=== PATIENT | female | born 1995 | race Caucasian/White ===

== ENCOUNTER 2019-04-19 12:36 | Observation (INO) ==
[2019-04-19 13:47] LABS: Bilirubin,Urine Negative (Negative); Blood,Urine Trace (Negative); Clarity,Urine Turbid (Clear); Color,Urine Yellow (Yellow); Glucose,Urine (UA) Normal (Normal); Ketones,Urine Negative (Negative); Leukocyte Esterase,Urine Large (Negative); Nitrite,Urine Positive (Negative); PH,Urine 7.5 pH Units (5.0-8.0); Protein,Urine 30 mg/dL (Neg-Trace); Specific Gravity,Urine 1.015 (1.010-1.025); Urobilinogen,Urine Normal (Normal)
[2019-04-19 13:48] LABS: Bacteria,Urine Many per hpf (None-Few); Hyaline Casts,Urine Few per lpf (None-Few); Squamous Epithelial Cell,Urine Many per lpf (None-Few); WBC,Urine TNTC per hpf (0-3)
[2019-04-19 13:57] LABS: RBC,Urine 0-3 per hpf (0-3)
[2019-04-19 14:01] LABS: Basophils % 0.1 %; Eosinophils # 0.1 K/mcL (0.0-0.6); Eosinophils % 0.4 %; Hematocrit 33.3 % (35.3-44.9); Hemoglobin 11.4 g/dL (11.5-15.4); Immature Granulocytes % 0.4 % (0-4); Lymphocytes # 2.1 K/mcL (0.6-4.6); Lymphocytes % 15.8 %; Mean Corpuscular HGB Conc 34.2 g/dL (31.6-35.5); Mean Corpuscular Hemoglobin 28.1 pg (28.0-33.3); Mean Corpuscular Volume 82.2 fL (83.0-100.0); Mean Platelet Volume 11.9 fL (9.4-12.4); Monocytes # 0.7 K/mcL (0.0-1.3); Monocytes % 5.3 %; Neutrophils # 10.5 K/mcL (1.6-8.9); Platelet Count 242 K/mcL (140-400); Red Blood Count 4.05 M/mcL (3.82-4.97); Red Cell Distribution Width 13.4 % (11.5-14.5); White Blood Count 13.4 K/mcL (4.3-11.1)
[2019-04-19] MEDS ORDERED: Ringers Solution, Lactated 1,000 ML IVC ONE (14:01)
[2019-04-19 14:21] LABS: Amphetamine Screen,Urine Negative ng/mL (Cutoff=1000); Barbiturate Screen,Urine Negative ng/mL (Cutoff=200); Benzodiazepines Screen,Urine Negative ng/mL (Cutoff=200); Cannabinoid Screen,Urine Negative ng/mL (Cutoff = 50); Cocaine Screen,Urine Negative ng/mL (Cutoff= 300); Opiate Screen,Urine Negative ng/mL (Cutoff=300); Phencyclidine Screen,Urine Negative ng/mL (Cutoff=25)
[2019-04-19 14:23] LABS: Amylase 11 Units/L (29-103)
[2019-04-19] MEDS ORDERED: cefTRIAXone 1,000 MG in Water for inj. (sterile) 10 ML IVP ONE (14:52)
[2019-04-19 16:18] LABS: Alanine Aminotransferase 9 Units/L (7-52); Aspartate Amino Transferase 13 Units/L (13-39); BUN/Creatinine Ratio 10 (6-26); Blood Urea Nitrogen 4 mg/dL (6-20); Lactate Dehydrogenase 128 Units/L (140-271); Lipase 3 Units/L (11-82); Uric Acid 3.9 mg/dL (2.3-7.6); eGFR For African Americans > 60 (> 60); eGFR For Non-African Americans > 60 (> 60)
[2019-04-19 16:20] LABS: Protein/Creatinine Ratio,Urine 0.56 mg/mg (0.00-0.20)
== END 2019-04-19 18:00 | disposition home or self-care (01) ==
LOC: 1NENULAB
PROVIDERS: ADMIT Registered Nurse; ATTEND Registered Nurse

== ENCOUNTER 2019-04-28 07:00 | Inpatient (IN) ==
[2019-04-28] MEDS ORDERED: Famotidine 20 MG/2 ML VIAL IVP ONE (07:17)
[2019-04-28] MEDS ORDERED: CeFAZolin Premix DUPLEX 2,000 MG/50 ML BAG IVPB ONE (07:17)
[2019-04-28] MEDS ORDERED: Metoclopramide 10 MG/2 ML VIAL IVP ONE (07:17)
[2019-04-28] MEDS ORDERED: Oxytocin 20 units/ LR 1000 mL 20 UNIT/1,000 ML BAG IVC ONE (07:17)
[2019-04-28] MEDS ORDERED: Ringers Solution, Lactated 1,000 ML IVC ONE (07:17)
[2019-04-28] MEDS ORDERED: Oxytocin 20 units/ LR 1000 mL 20 UNIT/1,000 ML BAG IVC SCH ×2 (07:30→13:32)
[2019-04-28] MEDS ORDERED: Ringers Solution, Lactated 1,000 ML IVC SCH (07:30)
[2019-04-28] MEDS ORDERED: *HR* Morphine Sulfate/PF 10 MG/10 ML AMPUL ONE (07:41)
[2019-04-28] MEDS ORDERED: Ringers Solution, Lactated 1,000 ML ONE (07:41)
[2019-04-28] MEDS ORDERED: *HR* FentaNYL (PF) 100 MCG/2 ML VIAL ONE (07:41)
[2019-04-28] MEDS ORDERED: *HR* Oxytocin 10 UNIT/ML VIAL IM ONE ×2 (07:41→09:49)
[2019-04-28] MEDS ORDERED: *HR* Phenylephrine 10 MG/ML VIAL ONE (07:41)
[2019-04-28 08:04] LABS: Basophils % 0.2 %; Eosinophils # 0.1 K/mcL (0.0-0.6); Eosinophils % 0.9 %; Hemoglobin 11.3 g/dL (11.5-15.4); Immature Granulocytes % 0.3 % (0-4); Lymphocytes # 2.7 K/mcL (0.6-4.6); Lymphocytes % 26.7 %; Mean Corpuscular HGB Conc 32.3 g/dL (31.6-35.5); Mean Corpuscular Hemoglobin 27.4 pg (28.0-33.3); Mean Corpuscular Volume 84.7 fL (83.0-100.0); Mean Platelet Volume 11.9 fL (9.4-12.4); Monocytes # 0.4 K/mcL (0.0-1.3); Neutrophils # 6.9 K/mcL (1.6-8.9); Platelet Count 242 K/mcL (140-400); Red Blood Count 4.13 M/mcL (3.82-4.97); Red Cell Distribution Width 13.4 % (11.5-14.5); Segmented Neutrophils % 67.9 %; White Blood Count 10.2 K/mcL (4.3-11.1)
[2019-04-28 08:24] LABS: Alanine Aminotransferase 49 Units/L (7-52); Aspartate Amino Transferase 41 Units/L (13-39); BUN/Creatinine Ratio 18 (6-26); Blood Urea Nitrogen 7 mg/dL (6-20); Lactate Dehydrogenase 121 Units/L (140-271); eGFR For African Americans > 60 (> 60); eGFR For Non-African Americans > 60 (> 60)
[2019-04-28 08:37] LABS: Uric Acid 4.6 mg/dL (2.3-7.6)
[2019-04-28 08:38] LABS: Creatinine,Urine 109 mg/dL
[2019-04-28 09:46] LABS: Amphetamine Screen,Urine Negative ng/mL (Cutoff=1000); Barbiturate Screen,Urine Negative ng/mL (Cutoff=200); Benzodiazepines Screen,Urine Negative ng/mL (Cutoff=200); Cannabinoid Screen,Urine Negative ng/mL (Cutoff = 50); Cocaine Screen,Urine Negative ng/mL (Cutoff= 300); Opiate Screen,Urine Negative ng/mL (Cutoff=300); Phencyclidine Screen,Urine Negative ng/mL (Cutoff=25)
[2019-04-28] MEDS ORDERED: Lidocaine -MPF 2% 5 ML VIAL ONE (09:49)
[2019-04-28] MEDS ORDERED: Acetaminophen IV 1,000 MG/100 ML INFUS..BTL IVPB ONE (10:13)
[2019-04-28] MEDS ORDERED: *HR* OxyCODONE Immed Rel 5 MG TABLET PO PRN (10:13)
[2019-04-28] MEDS ORDERED: *HR* HYDROmorphone (PF) 1 MG/ML SYRINGE IVP PRN (10:13)
[2019-04-28] MEDS ORDERED: Ondansetron 4 MG/2 ML VIAL IVP ONE (10:13)
[2019-04-28] MEDS ORDERED: Ondansetron 4 MG/2 ML VIAL IVP PRN (13:32)
[2019-04-28] MEDS ORDERED: Sennosides 8.6 MG TABLET PO PRN (13:32)
[2019-04-28] MEDS ORDERED: Metoclopramide 10 MG/2 ML VIAL IVP PRN (13:32)
[2019-04-28] MEDS: *HR* Buprenorphine HCl 8 MG TAB.SUBL SL SCH ×2 (14:34→21:15)
[2019-04-28] MEDS: metroNIDAZOLE 500 MG TABLET PO SCH ×2 (14:35→21:15)
[2019-04-28] MEDS ORDERED: *HR* Buprenorphine HCl 8 MG TAB.SUBL SL SCH (21:00)
[2019-04-29] MEDS: Simethicone 80 MG TAB.CHEW PO PRN ×2 (03:53→13:28)
[2019-04-29] MEDS: Ibuprofen 600 MG TABLET PO PRN ×3 (03:53→21:02)
[2019-04-29 08:07] LABS: Basophils % 0.2 %; Eosinophils # 0.1 K/mcL (0.0-0.6); Eosinophils % 0.5 %; Hematocrit 32.8 % (35.3-44.9); Hemoglobin 10.8 g/dL (11.5-15.4); Immature Granulocytes % 0.3 % (0-4); Lymphocytes # 2.7 K/mcL (0.6-4.6); Lymphocytes % 21.2 %; Mean Corpuscular HGB Conc 32.9 g/dL (31.6-35.5); Mean Corpuscular Hemoglobin 27.7 pg (28.0-33.3); Mean Corpuscular Volume 84.1 fL (83.0-100.0); Mean Platelet Volume 11.6 fL (9.4-12.4); Monocytes # 0.6 K/mcL (0.0-1.3); Monocytes % 4.4 %; Neutrophils # 9.2 K/mcL (1.6-8.9); Platelet Count 195 K/mcL (140-400); Red Cell Distribution Width 13.4 % (11.5-14.5); Segmented Neutrophils % 73.4 %; White Blood Count 12.6 K/mcL (4.3-11.1)
[2019-04-29] MEDS: *HR* Buprenorphine HCl 8 MG TAB.SUBL SL SCH ×2 (08:47→21:01)
[2019-04-29] MEDS: metroNIDAZOLE 500 MG TABLET PO SCH ×3 (08:48→21:10)
[2019-04-29] MEDS: Prenatal Vit/FA 1 EACH TABLET PO SCH (08:49)
[2019-04-29] MEDS ORDERED: Ipratropium/Albuterol Neb 3 ML IH PRN (08:54)
[2019-04-30] MEDS: Ibuprofen 600 MG TABLET PO PRN ×2 (09:42→21:47)
[2019-04-30] MEDS: Prenatal Vit/FA 1 EACH TABLET PO SCH (09:43)
[2019-04-30] MEDS: metroNIDAZOLE 500 MG TABLET PO SCH (09:43)
[2019-04-30] MEDS: *HR* Buprenorphine HCl 8 MG TAB.SUBL SL SCH ×2 (09:43→21:47)
[2019-05-01 08:10] VITALS: BP 122/69
[2019-05-01] MEDS: *HR* Buprenorphine HCl 8 MG TAB.SUBL SL SCH (08:39)
[2019-05-01] MEDS: Prenatal Vit/FA 1 EACH TABLET PO SCH (08:40)
[2019-05-01] MEDS: Ibuprofen 600 MG TABLET PO PRN (08:40)
== END 2019-05-01 11:23 | disposition home or self-care (01) | DRG 540 ==
LOC: 1NENULAB 07:00 → 1NENUOBS 13:39
PROVIDERS: ADMIT Obstetrics & Gynecology; ATTEND Obstetrics & Gynecology

== ENCOUNTER 2020-04-17 18:22 | Observation (INO) ==
[2020-04-17 18:57] LABS: Basophils % 0.3 %; Eosinophils # 0.2 K/mcL (0.0-0.6); Eosinophils % 1.4 %; Hematocrit 42.4 % (35.3-44.9); Hemoglobin 14.1 g/dL (11.5-15.4); Immature Granulocytes % 0.3 % (0-4); Lymphocytes # 3.8 K/mcL (0.6-4.6); Lymphocytes % 32.1 %; Mean Corpuscular HGB Conc 33.3 g/dL (31.6-35.5); Mean Corpuscular Hemoglobin 28.5 pg (28.0-33.3); Mean Corpuscular Volume 85.8 fL (83.0-100.0); Monocytes # 0.5 K/mcL (0.0-1.3); Monocytes % 4.5 %; Neutrophils # 7.3 K/mcL (1.6-8.9); Platelet Count 255 K/mcL (140-400); Red Blood Count 4.94 M/mcL (3.82-4.97); Red Cell Distribution Width 13.2 % (11.5-14.5); Segmented Neutrophils % 61.4 %; White Blood Count 11.9 K/mcL (4.3-11.1)
[2020-04-17 19:13] LABS: Acetaminophen < 10 mcg/mL (10-20); BUN/Creatinine Ratio 21 (6-26); Blood Urea Nitrogen 14 mg/dL (6-20); Calcium 9.8 mg/dL (8.6-10.3); Carbon Dioxide 28 mEq/L (23-29); Chloride 102 mEq/L (98-107); Chol/HDL Ratio 4.7 (0-4.9); Cholesterol 194 mg/dL (< 200); Ethanol < 10 mg/dL (Less than 10); Glucose 92 mg/dL (70-105); HDL Cholesterol 41 mg/dL (40-59); LDL Cholesterol,Calculated 135 mg/dL (< 100); Osmolality,Calculated 284 (280-300); Salicylate < 2.5 mg/dL (15.0-30.0); Sodium 137 mEq/L (136-145); Triglycerides 90 mg/dL (< 150); eGFR For African Americans > 60 (> 60); eGFR For Non-African Americans > 60 (> 60)
[2020-04-17 19:22] LABS: Amphetamine Screen,Urine Negative ng/mL (Cutoff=1000); Barbiturate Screen,Urine Negative ng/mL (Cutoff=200); Benzodiazepines Screen,Urine Positive ng/mL (Cutoff=200); Cannabinoid Screen,Urine Positive ng/mL (Cutoff = 50); Cocaine Screen,Urine Negative ng/mL (Cutoff= 300); Opiate Screen,Urine Negative ng/mL (Cutoff=300); Phencyclidine Screen,Urine Negative ng/mL (Cutoff=25)
[2020-04-17 19:23] LABS: Bilirubin,Urine Negative (Negative); Blood,Urine Negative (Negative); Clarity,Urine Turbid (Clear); Color,Urine Yellow (Yellow); Glucose,Urine (UA) Normal (Normal); Hyaline Casts,Urine Few per lpf (None Seen); Ketones,Urine Negative (Negative); Leukocyte Esterase,Urine Moderate (Negative); Mucus,Urine Few per lpf (None-Few); Nitrite,Urine Negative (Negative); Protein,Urine 50 mg/dL (Neg-Trace); RBC,Urine 0-3 per hpf (0-3); Renal Epithelial Cells,Urine Few per hpf (None-Few); Squamous Epithelial Cell,Urine Moderate per hpf (None-Few); Transitional Epi Cells,Urine Few per hpf (None-Few)
[2020-04-17 19:27] LABS: Estimated Average Glucose 131 mg/dl
[2020-04-17] MEDS ORDERED: Ondansetron ODT 4 MG TAB.RAPDIS SL ONE (19:56)
[2020-04-17] MEDS ORDERED: *HR* LORazepam 1 MG TABLET PO PRN (20:52)
[2020-04-17] MEDS ORDERED: MOM Conc 10 ML UD.LIQ PO PRN (20:52)
[2020-04-17] MEDS ORDERED: haloperidoL 5 MG TABLET PO PRN (20:52)
[2020-04-17] MEDS ORDERED: hydrOXYzine pamoate 25 MG CAPSULE PO PRN (20:52)
[2020-04-17] MEDS ORDERED: QUEtiapine Fumarate 25 MG TABLET PO PRN (20:52)
[2020-04-17] MEDS ORDERED: Mag Hydrox/Al Hydrox/Simeth 30 ML UDC PO PRN (20:52)
[2020-04-17] MEDS ORDERED: *HR* LORazepam 2 MG/ML VIAL IM PRN (20:52)
[2020-04-17] MEDS ORDERED: Ibuprofen 400 MG TABLET PO PRN (20:52)
[2020-04-17] MEDS ORDERED: Haloperidol Lactate 5 MG/ML VIAL IM PRN (20:52)
[2020-04-17] MEDS: *HR* Buprenorphine HCl 8 MG TAB.SUBL SL SCH (21:44)
[2020-04-17] MEDS ORDERED: Nicotine 21 MG PATCH.TD24 TD ONE (22:25)
[2020-04-18] MEDS: *HR* Buprenorphine HCl 8 MG TAB.SUBL SL SCH (08:34)
[2020-04-18 08:59] VITALS: BP 112/68
== END 2020-04-18 11:45 | disposition home or self-care (01) ==
LOC: EMEROOARM 18:22 → 1ANU 20:50 → INTOOBSV 20:50 → 1ANU 21:30
PROVIDERS: ADMIT Psychiatry & Neurology Psychiatry; ATTEND Psychiatry & Neurology Psychiatry

== ENCOUNTER 2020-08-31 12:16 | Observation (INO) ==
[2020-08-31] MEDS ORDERED: Metoclopramide 10 MG/2 ML VIAL IVP ONE (13:01)
[2020-08-31] MEDS ORDERED: Ipratropium/Albuterol Neb 3 ML IH ONE (13:01)
[2020-08-31] MEDS ORDERED: Ketorolac 30 MG/ML VIAL IVP ONE (13:03)
[2020-08-31 13:21] LABS: Basophils % 0.2 %; Eosinophils # 0.1 K/mcL (0.0-0.6); Eosinophils % 1.2 %; Hemoglobin 12.3 g/dL (11.5-15.4); Immature Granulocytes % 0.3 % (0-4); Lymphocytes # 2.8 K/mcL (0.6-4.6); Lymphocytes % 30.5 %; Mean Corpuscular HGB Conc 34.2 g/dL (31.6-35.5); Mean Corpuscular Hemoglobin 28.1 pg (28.0-33.3); Mean Corpuscular Volume 82.4 fL (83.0-100.0); Mean Platelet Volume 11.6 fL (9.4-12.4); Monocytes # 0.6 K/mcL (0.0-1.3); Monocytes % 6.7 %; Neutrophils # 5.7 K/mcL (1.6-8.9); Platelet Count 227 K/mcL (140-400); Red Blood Count 4.37 M/mcL (3.82-4.97); Red Cell Distribution Width 13.2 % (11.5-14.5); Segmented Neutrophils % 61.1 %; White Blood Count 9.3 K/mcL (4.3-11.1)
[2020-08-31] MEDS ORDERED: Ipratropium 1 PUFF INHALER IH ONE (13:34)
[2020-08-31 13:44] LABS: Alanine Aminotransferase 10 Units/L (7-52); Albumin 4.4 g/dL (3.5-5.7); Albumin/Globulin Ratio 1.3 (1.1-2.2); Alkaline Phosphatase 54 Units/L (34-104); Aspartate Amino Transferase 16 Units/L (13-39); BUN/Creatinine Ratio 12 (6-26); Bilirubin,Total 0.5 mg/dL (0.3-1.0); Blood Urea Nitrogen 6 mg/dL (6-20); Calcium 9.1 mg/dL (8.6-10.3); Carbon Dioxide 27 mEq/L (23-29); Chloride 100 mEq/L (98-107); Globulin 3.4 g/dL (2.4-3.5); Glucose 90 mg/dL (70-105); Osmolality,Calculated 277 (280-300); Potassium 3.1 mEq/L (3.5-5.1); Sodium 135 mEq/L (136-145); Total Protein 7.8 g/dL (6.4-8.9); Troponin I < 0.03 ng/mL (< 0.04); eGFR For African Americans > 60 (> 60); eGFR For Non-African Americans > 60 (> 60)
[2020-08-31] MEDS ORDERED: Potassium Chloride Elixir 20 MEQ/15 ML UDC PO ONE (13:46)
[2020-08-31] MEDS ORDERED: Isovue-370 500 ML BOTTLE IVP ONE (14:32)
[2020-08-31] MEDS ORDERED: cefTRIAXone 1,000 MG in Water for inj. (sterile) 10 ML IVP ONE (15:51)
[2020-08-31] MEDS ORDERED: Azithromycin 500 MG in 0.9 % Sodium Chloride 250 ML IVPB ONE (15:51)
[2020-08-31 16:09] LABS: Adenovirus Not Detected (Not Detect); Bordetella Pertussis Not Detected (Not Detect); Chlamydophila pneumoniae Not Detected (Not Detect); Coronavirus 229E Not Detected (Not Detect); Coronavirus HKU1 Not Detected (Not Detect); Coronavirus NL63 Not Detected (Not Detect); Coronavirus OC43 Not Detected (Not Detect); Human Metapneumovirus Not Detected (Not Detect); Human Rhinovirus/Enterovirus DETECTED (Not Detect); Influenza A Subtype 2009 H1 Not Detected (Not Detect); Influenza B Not Detected (Not Detect); Mycoplasma pneumoniae Not Detected (Not Detect); Parainfluenza Virus 1 Not Detected (Not Detect); Parainfluenza Virus 2 Not Detected (Not Detect); Parainfluenza Virus 3 Not Detected (Not Detect); Parainfluenza Virus 4 Not Detected (Not Detect); Respiratory Syncytial Virus Not Detected (Not Detect); SARS-CoV-2 Not Detected (Not Detect)
[2020-08-31] MEDS ORDERED: Naloxone 0.4 MG/ML INJ IVP PRN (16:48)
[2020-08-31] MEDS ORDERED: Ondansetron 4 MG/2 ML VIAL IVP PRN (16:48)
[2020-08-31] MEDS ORDERED: Acetaminophen 325 MG TABLET PO PRN (16:48)
[2020-08-31] MEDS: MethylPREDNISolone 40 MG/ML VIAL IVP SCH (18:24)
[2020-08-31] MEDS: Albuterol 2.5 MG/3 ML NEBULIZER IH SCH (20:33)
[2020-09-01] MEDS: *HR* Buprenorphine HCl 8 MG TAB.SUBL SL SCH ×2 (00:27→10:44)
[2020-09-01] MEDS: Albuterol 2.5 MG/3 ML NEBULIZER IH SCH ×4 (00:46→11:14)
[2020-09-01 02:28] LABS: Basophils % 0.2 %; Hematocrit 36.3 % (35.3-44.9); Hemoglobin 12.1 g/dL (11.5-15.4); Immature Granulocytes % 0.2 % (0-4); Lymphocytes # 1.2 K/mcL (0.6-4.6); Lymphocytes % 17.3 %; Mean Corpuscular HGB Conc 33.3 g/dL (31.6-35.5); Mean Platelet Volume 12.2 fL (9.4-12.4); Monocytes # 0.3 K/mcL (0.0-1.3); Monocytes % 4.4 %; Neutrophils # 5.2 K/mcL (1.6-8.9); Platelet Count 241 K/mcL (140-400); Red Blood Count 4.32 M/mcL (3.82-4.97); Red Cell Distribution Width 13.4 % (11.5-14.5); Segmented Neutrophils % 77.9 %; White Blood Count 6.7 K/mcL (4.3-11.1)
[2020-09-01 02:46] LABS: BUN/Creatinine Ratio 16 (6-26); Blood Urea Nitrogen 9 mg/dL (6-20); Calcium 9.3 mg/dL (8.6-10.3); Carbon Dioxide 23 mEq/L (23-29); Chloride 102 mEq/L (98-107); Glucose 172 mg/dL (70-105); Magnesium 2.2 mg/dL (1.6-2.6); Osmolality,Calculated 285 (280-300); Phosphorous 3.5 mg/dL (2.7-4.5); Potassium 3.4 mEq/L (3.5-5.1); Sodium 136 mEq/L (136-145); eGFR For African Americans > 60 (> 60); eGFR For Non-African Americans > 60 (> 60)
[2020-09-01 03:39] VITALS: BP 133/63
[2020-09-01] MEDS: MethylPREDNISolone 40 MG/ML VIAL IVP SCH (05:38)
[2020-09-01] MEDS ORDERED: levoFLOXacin 750 MG/150 ML 750 MG/150 ML BAG IVPB SCH (09:00)
[2020-09-01 11:47] LABS: Amphetamine Screen,Urine Positive ng/mL (Cutoff=1000); Barbiturate Screen,Urine Negative ng/mL (Cutoff=200); Benzodiazepines Screen,Urine Negative ng/mL (Cutoff=200); Cannabinoid Screen,Urine Positive ng/mL (Cutoff = 50); Cocaine Screen,Urine Negative ng/mL (Cutoff= 300); Opiate Screen,Urine Negative ng/mL (Cutoff=300); Phencyclidine Screen,Urine Negative ng/mL (Cutoff=25)
== END 2020-09-01 14:15 | disposition home or self-care (01) ==
LOC: 2NENU 12:16 → EMEROOARM 12:16 → SUATTDRO 16:48 → 2NENU 18:06
PROVIDERS: ADMIT Internal Medicine; ATTEND Internal Medicine